=== PATIENT | female | born 1945 | race Hispanic/Latino ===

== ENCOUNTER 2017-07-06 16:54 | Emergency (ER) | payer MEDICARE ==
[2017-07-06 17:31] VITALS: BMI 41.7
--- NOTE | 2017-07-06 17:50 | ED PDOC ---
Arrival/HPI - General Historian: Patient - History of Present Illness Time/Duration: 24 hours Symptom Onset: Sudden Symptom Course: Worsening Quality: Aching, Pressure Severity Level: Moderate, Severe Activities at Onset: Light Context: Home <Makenzie Vega - Last Filed: 07/06/17 22:02> <Hero Ziegler - Last Filed: 07/07/17 06:31> - General Chief Complaint: Lower Extremity Problem/Injury Time Seen by Provider: 07/06/17 17:47 - History of Present Illness Narrative History of Present Illness (Text): 07/06/17 17:47 Pt is a 71 year old female diabetic who complains of right hip pain x 1 day that radiates down to the anterolateral thigh. Patient states the pain started yesterday morning and progressed into a more intense pain that she now rates as 10/10. Denies trauma, fever, nausea, vomiting, diarrhea, back pain, other joint pain, numbness and tingling. PCP is Dr. Pack who would like to be consulted on the patient's findings. Fracture of the right ankle occurred last year that has healed without complications according to patient. Also reports an CA in her history. 07/06/17 17:59 07/06/17 18:07 (Makenzie Veag) Past Medical History - Provider Review Nursing Documentation Reviewed: Yes - Travel History Have you recently traveled outside [place] w/in the past 3 mons?: No - Infectious Disease Hx of Infectious Diseases: None - Cardiac Hx Cardiac Disorders: Yes Hx Cardiac Arrhythmia: Yes (Tachycardia, on Toprol) - Pulmonary Hx Respiratory Disorders: No (CHRONIC SINUSITIS) Other/Comment: H/O Chest Tube insertion in 2009 - Neurological Hx Neurological Disorder: No - HEENT Hx HEENT Disorder: Yes Hx Cataracts: Yes Other/Comment: Wears eyeglasses - Renal Hx Renal Disorder: No - Endocrine/Metabolic Hx Endocrine Disorders: Yes Hx Diabetes Mellitus Type 2: Yes - Hematological/Oncological Hx Blood Disorders: Yes Hx Anemia: Yes Hx Cancer: Yes (Chemo & Radiation w Breast CA in 1992) Other/Comment: L breast CA. Uterine CA - Integumentary Hx Dermatological Disorder: No - Musculoskeletal/Rheumatological Hx Musculoskeletal Disorders: No Hx Falls: No - Gastrointestinal Hx Gastrointestinal Disorders: No - Genitourinary/Gynecological Hx Cervical Cancer: Yes Hx Ovarian Cancer: Yes Hx Reproductive Disorders: Yes Hx Uterine Cancer: Yes (2001; with Hysterectomy) - Psychiatric Hx Depression: Yes (On Effexor; Dr. Stokes) Hx Substance Use: No - Surgical History Hx Appendectomy: Yes Hx Cholecystectomy: Yes (1999) Hx Hysterectomy: Yes (2001) Hx Mastectomy: Yes (L breast lumpectomy 1992) Other/Comment: H/O Chest Tube insertion in 2009. Retinal Surgery in July 2014 - Anesthesia Hx Anesthesia: Yes Hx Anesthesia Reactions: No Hx Malignant Hyperthermia: No <Makenzie Vega - Last Filed: 07/06/17 22:02> Family/Social History - Physician Review Nursing Documentation Reviewed: Yes Family/Social History: Unknown Family HX Smoking Status: Never Smoked Hx Alcohol Use: No Hx Substance Use: No <Makenzie Vega - Last Filed: 07/06/17 22:02> Family/Social History: No Known Family HX <Hero Ziegler - Last Filed: 07/07/17 06:31> Allergies/Home Meds <Makenzie Vega - Last Filed: 07/06/17 22:02> <Hero Ziegler - Last Filed: 07/07/17 06:31> Allergies/Adverse Reactions: Allergies erythromycin base Allergy (Verified 01/06/16 17:31) ITCHING tetracycline Allergy (Verified 01/06/16 17:31) ITCHING acetaminophen [from Percocet] Allergy (Uncoded 01/06/16 17:31) SHORTNESS OF BREATH oxycodone [from Percocet] Allergy (Uncoded 01/06/16 17:31) SHORTNESS OF BREATH Home Medications: Home Meds Medication Instructions Recorded Confirmed Simethicone [Gas-X] 125 mg PO PRN PRN 02/17/15 07/09/16 Ferrous Sulfate [Feosol] 1 tab PO DAILY 07/09/16 07/09/16 Pantoprazole [Protonix EC Tab] 1 tab PO DAILY 07/09/16 07/09/16 Venlafaxine [Effexor XR] 225 mg PO DAILY 07/09/16 07/09/16 Review of Systems - Review of Systems Constitutional: Normal Eyes: Normal ENT: Normal Respiratory: Normal Cardiovascular: Normal Gastrointestinal: Normal Genitourinary Female: Normal Musculoskeletal: Arthralgias (Right trochanter pain with pain into groin and thigh) Skin: Normal Neurological: Normal Endocrine: Normal Hemo/Lymphatic: Normal Psychiatric: Normal <Makenzie Vega - Last Filed: 07/06/17 22:02> Physical Exam Vital Signs Reviewed: Yes Temperature: Afebrile Blood Pressure: Normal Pulse: Regular Respiratory Rate: Normal Appearance: Positive for: Well-Appearing, Non-Toxic, Comfortable Pain Distress: None Mental Status: Positive for: Alert and Oriented X 3 - Systems Exam Head: Present: Atraumatic, Normocephalic Pupils: Present: PERRL Extroacular Muscles: Present: EOMI Conjunctiva: Present: Normal Mouth: Present: Moist Mucous Membranes Neck: Present: Normal Range of Motion Respiratory/Chest: Present: Clear to Auscultation, Good Air Exchange. No: Respiratory Distress, Accessory Muscle Use Cardiovascular: Present: Regular Rate and Rhythm, Normal S1, S2. No: Murmurs Abdomen: Present: Normal Bowel Sounds. No: Tenderness, Distention, Peritoneal Signs Back: Present: Normal Inspection Upper Extremity: Present: Normal Inspection. No: Cyanosis, Edema Lower Extremity: Present: Normal Inspection, Normal ROM, Tenderness (over the right trochanter with radiation of pain into groin and down the anterolateral thigh; ). No: Edema Neurological: Present: GCS=15, CN II-XII Intact, Speech Normal Skin: Present: Warm, Dry, Normal Color. No: Rashes Psychiatric: Present: Alert, Oriented x 3, Normal Insight, Normal Concentration <Makenzie Vega - Last Filed: 07/06/17 22:02> Vital Signs Temp Pulse Resp BP Pulse Ox 07/06/17 20:53 69 18 147/75 99 07/06/17 16:55 98.4 F 71 18 134/83 98 Medical Decision Making - Lab Interpretations I have reviewed the lab results: Yes (Random Glucose 371) - RAD Interpretation Poiser: Radiologist <Makenzie Vega - Last Filed: 07/06/17 22:02> <Hero Ziegler - Last Filed: 07/07/17 06:31> ED Course and Treatment: 07/06/17 17:50 Impression Pt is a 71 year old female who complaining of right hip pain x 1 day that radiates down to the anterolateral thigh. Plan right hip XR cbc, cmp, ua, LE doppler Random Glucose 371; pt did not take her medication today in light of the pain Informed pt of positive UTI; Keflex 500 mg given STAT Dispo home with Keflex 500 mg q12 x 7days, Tramadol 50 mg BID x5 days for pain Strongly advised pt to take insulin and other meds once home Pt VSS on dc and will go home with her Father in an ambulette (Makenzie Vega) - Lab Interpretations Lab Results: 07/06/17 18:30 07/06/17 18:30 Lab Results 07/06/17 19:20: Urine Color Yellow, Urine Appearance Sl cloudy, Urine pH 6.0, Ur Specific [place] 1.020, Urine Protein Negative, Urine Glucose (UA) >=1000, Urine Ketones Trace H, Urine Blood Small H, Urine Nitrate Positive H, Urine Bilirubin Negative, Urine Urobilinogen 1.0 H, Ur Leukocyte Esterase Trace H, Urine RBC 2 - 5, Urine WBC Tntc, Ur Epithelial Cells 3 - 4, Urine Bacteria Many 07/06/17 18:30: Sodium 139, Potassium 4.4, Chloride 101, Carbon Dioxide 27, Anion Gap 15, BUN 20, Creatinine 0.9, Est GFR ( Amer) > 60, Est GFR (Non- Af Amer) > 60, Random Glucose 371 H* D, Calcium 8.6, Total Bilirubin 0.8, AST 28 , ALT 32, Alkaline Phosphatase 78, Total Protein 6.3, Albumin 3.4, Globulin 2.9 , Albumin/Globulin Ratio 1.2 07/06/17 18:30: WBC 7.0, RBC 4.65, Hgb 13.1, Hct 38.9, MCV 83.7, MCH 28.2, MCHC 33.7, RDW 13.7, Plt Count 203, MPV 10.3, Gran % 82.5 H, Lymph % (Auto) 4.0 L, [place] % (Auto) 10.3 H, Eos % (Auto) 2.9, Baso % (Auto) 0.3, Gran # 5.78, Lymph # (Auto) 0.3 L, [place] # (Auto) 0.7 H, Eos # (Auto) 0.2, Baso # (Auto) 0.02, Neutrophils % (Manual) 86 H, Lymphocytes % (Manual) 5 L, Atypical Lymphs % 4 H, Monocytes % (Manual) 1, Eosinophils % (Manual) 4 H, Platelet Evaluation Normal - RAD Interpretation Narrative RAD Interpretations (Text): 07/06/17 20:21 LE dupplex NEG 07/06/17 22:08 No fracture of the right hip or dislocation appreciated on XR (Makenzie Vega) Radiology Orders: 07/06/17 18:03 Hip right [HIP MIN 4V W/ PELVIS RT] [RAD] Stat 07/06/17 18:04 DUPLEX LOWER EXTRM VEIN RIGHT [US] Stat - Medication Orders Current Medication Orders: Discontinued Medications Cephalexin Monohydrate (Keflex) 500 mg PO STAT STA PRN Reason: Protocol Stop: 07/06/17 20:56 Last Admin: 07/06/17 21:01 Dose: 500 mg Tramadol HCl (Ultram) 50 mg PO STAT STA Stop: 07/06/17 21:11 Last Admin: 07/06/17 21:28 Dose: 50 mg MAR Pain Assessment Document 07/06/17 21:28 SS (Rec: 07/06/17 21:28 SS [id number]) Pain Reassessment Is this a pain reassessment? No Presence of Pain Presence of Pain Yes - PA / [employer]ATING [employer] SUPERVISOR / Resident Statement MD/DO has reviewed & agrees with the documentation as recorded. MD/DO has examined the patient and agrees with the treatment plan. <Hero Ziegler - Last Filed: 07/07/17 06:31> Disposition/Present on Arrival - Present on Arrival Any Indicators Present on Arrival: Yes History of DVT/PE: No History of Uncontrolled Diabetes: Yes Urinary Catheter: No History of Decub. Ulcer: No History Surgical Site Infection Following: None - Disposition Have Diagnosis and Disposition been Completed?: Yes Disposition Time: 20:59 Patient Plan: Discharge <Makenzie Vega - Last Filed: 07/06/17 22:02> - Present on Arrival Any Indicators Present on Arrival: No - Disposition Have Diagnosis and Disposition been Completed?: Yes <Hero Ziegler - Last Filed: 07/07/17 06:31> - Disposition Diagnosis: UTI (urinary tract infection) Disposition: HOME/ ROUTINE Condition: STABLE Discharge Instructions (ExitCare): Urinary Tract Infection, Adult (DC) Additional Instructions: Dear Daphne, Please take the medication has been prescribed for you. You will need to take all the medication as directed. You may also take extra strength Tylenol for pain, as needed. If you experience any alarming symptoms over the next 24 hrs, return to the emergency department. Follow up with Dr. Pack in the next day or two. All the best in your recovery. Prescriptions: Cephalexin [Keflex] 500 mg PO Q12 7 Days #14 capsule traMADol [Ultram] 50 mg PO BID #10 tab Referrals: Ludmila Weber MD [Primary Care Provider] - Follow up with primary Forms: [employer] ([employer])
[2017-07-06 18:36] LABS: BASO # 0.02 K/mm3 (0.0-2.0); BASO % 0.3 % (0.0-3.0); EOS # 0.2 (0.0-0.7); EOS % 2.9 % (1.5-5.0); GRAN # 5.78 (1.4-6.5); GRAN % 82.5 % (50.0-68.0); HEMOGLOBIN 13.1 g/dL (12.0-16.0); LYMPH # 0.3 (1.2-3.4); MEAN CELL VOLUME 83.7 fl (80.0-105.0); MEAN CORPUSCULAR HEMOGLOBIN 28.2 pg (25.0-35.0); MEAN CORPUSCULAR HGB CONC 33.7 g/dl (31.0-37.0); MEAN PLATELET VOLUME 10.3 fl (7.0-11.0); MONO # 0.7 (0.1-0.6); MONO % 10.3 % (1.0-6.0); PLATELET COUNT 203 10^3/uL (120.0-450.0); RBC 4.65 10^6/uL (3.5-6.1); RED CELL DISTRIBUTION WIDTH 13.7 % (11.5-14.5)
[2017-07-06 19:17] LABS: ATYPICAL LYMPHOCYTE 4 % (0.0-0.0); EOSINOPHIL 4 % (0.0-3.0); LYMPHOCYTE 5 % (22.0-35.0); MONOCYTE 1 % (1.0-6.0); NEUTROPHIL 86 % (50.0-70.0); PLATELET ESTIMATE NORMAL (NORMAL)
[2017-07-06 19:18] LABS: ALB/GLOB RATIO 1.2 (1.1-1.8); ALBUMIN 3.4 g/dL (3.0-4.8); ALT/SGPT 32 U/L (7-56); AST/SGOT 28 U/L (14-36); BLOOD UREA NITROGEN 20 mg/dL (7-21); CALCIUM 8.6 mg/dL (8.4-10.5); GFR AFRICAN-AMERICAN > 60; GFR NON-AFRICAN AMERICAN > 60
[2017-07-06 20:18] LABS: URINE BILIRUBIN NEGATIVE (NEGATIVE); URINE BLOOD SMALL (NEGATIVE); URINE GLUCOSE (UA) >=1000 mg/dL (NEGATIVE); URINE LEUKOCYTE ESTERASE TRACE Leu/uL (NEGATIVE); URINE NITRATE POSITIVE (NEGATIVE); URINE PROTEIN NEGATIVE mg/dL (<30 mg/dL)
[2017-07-06 20:19] LABS: URINE APPEARANCE SL CLOUDY (CLEAR); URINE COLOR YELLOW (YELLOW)
[2017-07-06 20:21] LABS: URINE BACTERIA MANY (NEG); URINE WBC TNTC /hpf (0-6)
[2017-07-06 20:58] VITALS: BP 147/75; PULSE 69; RESP 18; TEMP 98.4; O2SAT 99
--- NOTE | 2017-07-07 09:17 | RAD ---
PROCEDURE: Right Hip and pelvis Radiographs. HISTORY: hip pain COMPARISON: None. FINDINGS: BONES: Normal. No fracture. JOINTS: Normal. SOFT TISSUES: Normal. OTHER FINDINGS: None. IMPRESSION: Negative
--- NOTE | 2017-07-07 09:50 | US ---
PROCEDURE: Right lower extremity venous US HISTORY: Leg pain and swelling. Evaluate for DVT. PHYSICIAN(S): Michael Ann M.D. TECHNIQUE: Duplex sonography and color-flow Doppler with graded compression were used to evaluate the deep venous system of the right lower extremity. FINDINGS: The visualized deep venous system of the right lower extremity is sonographically normal and compressible. Normal waveforms and augmentation are seen. There is no sonographic evidence for deep venous thrombosis in the visualized segments of the right lower extremity. IMPRESSION: 1. No sonographic evidence for deep venous thrombosis in the visualized segments of the right lower extremity.
== END 2017-07-06 21:35 | disposition home or self-care (01) ==
LOC: ED 16:54
DX: N39.0 Urinary tract infection, site not specified (principal); E11.9 Type 2 diabetes mellitus without complications

== ENCOUNTER 2018-05-21 13:11 | Outpatient (CLI) | payer MEDICARE | END 2018-05-21 13:12 | disposition home or self-care (01) | LOC: LAB 13:11 ==

== ENCOUNTER 2018-05-26 13:22 | Outpatient (CLI) | payer MEDICARE | END 2018-05-26 13:23 | disposition home or self-care (01) | LOC: LAB 13:22 ==

== ENCOUNTER 2018-06-15 10:38 | Outpatient (CLI) | payer MEDICARE | END 2018-06-15 10:39 | disposition home or self-care (01) | LOC: LAB 10:38 ==

== ENCOUNTER 2018-07-02 12:26 | Outpatient (CLI) | payer MEDICARE | END 2018-07-02 12:27 | disposition home or self-care (01) | LOC: RAD 12:26 ==

== ENCOUNTER → 2018-09-22 | Outpatient (CLI) | payer MEDICARE | LOC: LAB 13:17 ==